=== PATIENT | male | born 1945 | race Caucasian/White ===

== ENCOUNTER 2018-08-25 06:23 | Inpatient (IN) | payer BC ==
[2018-08-24 13:13] VITALS: BMI 25.1
[2018-08-25] MEDS ORDERED: Bupivacaine HCl 0.5%/Epinephrine 1:200,000/PF 30 ml Vial ONE (06:31)
[2018-08-25] MEDS ORDERED: Heparin 5,000 UNITS/ML VIAL ONE (06:31)
[2018-08-25] MEDS ORDERED: Iothalamate Meglumine 60% 50 ML VIAL FS ONE (06:46)
[2018-08-25] MEDS ORDERED: Fentanyl 250 MCG/5 ML VIAL ONE (06:55)
[2018-08-25 07:09] LABS: #Basophils 0.1 thou/uL (0.0-0.2); #Eosinphils 0.3 thou/uL (0.0-0.7); #Lymphocytes 1.5 thou/uL (1.20-3.40); #Monocytes 0.6 thou/uL (0.11-0.59); #Neutrophils 3.3 thou/uL (1.40-6.50); %Basophils 0.9 % (0.0-1.0); %Eosinophils 5.7 % (0.0-10.0); %Lymphocytes 25.6 % (21.0-51.0); %Monocytes 10.3 % (0.0-10.0); %Neutrophils 57.6 % (42.0-75.0); Hemoglobin 14.5 g/dL (14.0-18.0); Mean Corpuscular Hemoglobin 31.9 pg (27.0-31.0); Mean Corpuscular Volume 93.8 fL (78.0-98.0); Mean Platelet Volume 7.2 fL (7.4-10.4); Platelet Count 240 thou/uL (130-400); RBC Distribution Width 12.2 % (11.5-14.5); Red Blood Cell (RBC) Count 4.55 mill/uL (4.70-6.10); White Blood Cell (WBC) Count 5.8 thou/uL (4.8-10.8)
[2018-08-25] MEDS ORDERED: CEFAZOLIN 2 GM/50 ML BAG ONE (07:18)
[2018-08-25] MEDS ORDERED: Midazolam HCl 2 mg/2 ml Vial ONE (07:25)
[2018-08-25 07:29] LABS: Anion Gap 14 mmol/L (10-20); BUN (Urea Nitrogen) 14 mg/dL (8.4-25.7); Calc. Creatinine Clearance 65 mL/min (70-130); Calcium 9.6 mg/dL (7.8-10.44); Carbon Dioxide 25 mmol/L (23-31); Chloride 104 mmol/L (98-107); Estimated GFR-MDRD 64; Glucose 98 mg/dL (83-110); Potassium 4.1 mmol/L (3.5-5.1); Sodium 139 mmol/L (136-145)
[2018-08-25] MEDS ORDERED: Heparin 10,000 UNITS/1 ML VIAL ONE (10:51)
[2018-08-25] MEDS ORDERED: Protamine Sulfate 50 MG/5 ML VIAL ONE (11:29)
[2018-08-25] MEDS ORDERED: Promethazine HCl 25 MG/ML VIAL IM PRN (14:14)
[2018-08-25] MEDS ORDERED: Promethazine HCl 25 MG/ML VIAL SLOW IVP PRN (14:14)
[2018-08-25] MEDS ORDERED: Ondansetron HCl/PF 4 MG/2 ML Vial IVP PRN (14:14)
[2018-08-25] MEDS ORDERED: Lidocaine 1% PF 5 ML VIAL ONE (14:58)
[2018-08-25] MEDS ORDERED: Vecuronium 10 MG VIAL ONE (14:58)
[2018-08-25] MEDS ORDERED: PROPOFOL 200 MG/20 ML VIAL ONE (14:58)
[2018-08-25] MEDS ORDERED: Ondansetron PF 4 MG/2 ML Vial ONE (14:58)
[2018-08-25] MEDS ORDERED: Glycopyrrolate 0.2 MG/ML 5 ML SYRINGE ONE (14:58)
[2018-08-25] MEDS ORDERED: ePHEDrine 50 MG/ML VIAL ONE (14:58)
[2018-08-25] MEDS ORDERED: Ketorolac Tromethamine 30 MG/ML VIAL ONE (14:58)
[2018-08-25] MEDS ORDERED: CEFAZOLIN 2 GM/50 ML BAG IVPB SCH (18:00)
[2018-08-25] MEDS ORDERED: Acetaminophen 325 MG TAB PO PRN (18:10)
[2018-08-25] MEDS ORDERED: Ondansetron PF 4 MG/2 ML Vial IVP PRN (18:10)
[2018-08-25] MEDS ORDERED: Sodium Chloride 0.9% 1,000 ML IV SCH (18:10)
[2018-08-25] MEDS ORDERED: traMADol HCl 50 MG TAB PO PRN (18:10)
[2018-08-25] MEDS ORDERED: Insulin Regular 300 UNITS/3 ML VIAL SC PRN (18:10)
[2018-08-25] MEDS ORDERED: Dextrose 50% Abboject 50 ML SYRINGE SLOW IVP PRN (18:10)
[2018-08-25] MEDS ORDERED: Dextrose 5% in Water 1,000 ML IV PRN (18:10)
[2018-08-25] MEDS ORDERED: Fentanyl 100 MCG/2 ML VIAL SLOW IVP PRN ×2 (18:10)
[2018-08-25] MEDS ORDERED: HYDROcodone/Acetaminophen 5/325 mg Tablet PO PRN ×2 (18:10)
[2018-08-25] MEDS: Gabapentin 300 MG CAP PO SCH (21:05)
[2018-08-25] MEDS: Atorvastatin Calcium 10 MG TAB PO SCH (21:05)
[2018-08-25] MEDS: Metoprolol Tartrate 50 MG TAB PO SCH (21:05)
[2018-08-26] MEDS: CEFAZOLIN 2 GM/50 ML BAG IVPB SCH ×2 (04:52→12:23)
[2018-08-26 05:47] LABS: #Eosinphils 0.2 thou/uL (0.0-0.7); #Lymphocytes 1.2 thou/uL (1.20-3.40); #Monocytes 0.7 thou/uL (0.11-0.59); #Neutrophils 5.5 thou/uL (1.40-6.50); %Basophils 0.5 % (0.0-1.0); %Eosinophils 3.2 % (0.0-10.0); %Monocytes 9.1 % (0.0-10.0); %Neutrophils 72.2 % (42.0-75.0); Hemoglobin 11.7 g/dL (14.0-18.0); Mean Corpuscular HGB CONC 33.9 g/dL (32.0-36.0); Mean Corpuscular Hemoglobin 32.5 pg (27.0-31.0); Mean Corpuscular Volume 95.9 fL (78.0-98.0); Mean Platelet Volume 7.5 fL (7.4-10.4); Platelet Count 187 thou/uL (130-400); RBC Distribution Width 12.3 % (11.5-14.5); White Blood Cell (WBC) Count 7.7 thou/uL (4.8-10.8)
[2018-08-26 06:06] LABS: Anion Gap 10 mmol/L (10-20); BUN (Urea Nitrogen) 12 mg/dL (8.4-25.7); Calc. Creatinine Clearance 66 mL/min (70-130); Calcium 8.4 mg/dL (7.8-10.44); Carbon Dioxide 29 mmol/L (23-31); Chloride 101 mmol/L (98-107); Estimated GFR-MDRD 61; Glucose 110 mg/dL (83-110); Potassium 4.1 mmol/L (3.5-5.1); Sodium 136 mmol/L (136-145)
[2018-08-26] MEDS: Dronedarone HCl 400 MG TAB PO SCH ×2 (08:01→16:51)
[2018-08-26] MEDS: metFORMIN XR 500 MG TAB PO SCH (08:01)
[2018-08-26] MEDS: Clopidogrel Bisulfate 75 MG TAB PO SCH (08:02)
[2018-08-26] MEDS: Aspirin Chewable 81 MG TAB PO SCH (08:02)
[2018-08-26] MEDS: Metoprolol Tartrate 50 MG TAB PO SCH ×2 (08:04→20:22)
[2018-08-26] MEDS ORDERED: Zolpidem Tartrate 5 MG TAB PO PRN (10:50)
[2018-08-26] MEDS ORDERED: Clopidogrel Bisulfate 75 MG TAB ONE ×2 (11:30→12:16)
[2018-08-26] MEDS: Atorvastatin Calcium 10 MG TAB PO SCH (20:24)
[2018-08-26] MEDS: Gabapentin 300 MG CAP PO SCH (20:24)
[2018-08-27 05:50] LABS: #Eosinphils 0.4 thou/uL (0.0-0.7); #Lymphocytes 1.2 thou/uL (1.20-3.40); #Monocytes 0.8 thou/uL (0.11-0.59); #Neutrophils 4.7 thou/uL (1.40-6.50); %Basophils 0.3 % (0.0-1.0); %Eosinophils 6.2 % (0.0-10.0); %Neutrophils 65.5 % (42.0-75.0); Hemoglobin 11.3 g/dL (14.0-18.0); Mean Corpuscular Hemoglobin 32.6 pg (27.0-31.0); Mean Corpuscular Volume 95.9 fL (78.0-98.0); Mean Platelet Volume 7.3 fL (7.4-10.4); Platelet Count 177 thou/uL (130-400); RBC Distribution Width 12.2 % (11.5-14.5); Red Blood Cell (RBC) Count 3.48 mill/uL (4.70-6.10); White Blood Cell (WBC) Count 7.2 thou/uL (4.8-10.8)
[2018-08-27 06:04] LABS: Anion Gap 13 mmol/L (10-20); BUN (Urea Nitrogen) 12 mg/dL (8.4-25.7); Calc. Creatinine Clearance 86 mL/min (70-130); Calcium 8.6 mg/dL (7.8-10.44); Carbon Dioxide 24 mmol/L (23-31); Chloride 106 mmol/L (98-107); Estimated GFR-MDRD 85; Glucose 113 mg/dL (83-110); Sodium 139 mmol/L (136-145)
[2018-08-27] MEDS: Aspirin Chewable 81 MG TAB PO SCH (08:20)
[2018-08-27] MEDS: Metoprolol Tartrate 50 MG TAB PO SCH (08:20)
[2018-08-27] MEDS: metFORMIN XR 500 MG TAB PO SCH (08:21)
[2018-08-27] MEDS: Clopidogrel Bisulfate 75 MG TAB PO SCH (08:21)
[2018-08-27] MEDS: Dronedarone HCl 400 MG TAB PO SCH (08:21)
[2018-08-27 12:30] VITALS: BP 130/68; TEMP 97.9
--- NOTE | 2018-08-28 11:18 | OP ---
DATE OF PROCEDURE: 08/25/2018 PREOPERATIVE DIAGNOSIS: Severe peripheral vascular disease. PROCEDURE PERFORMED: Common iliac artery stents x2, 9 x 37 and 9 x 27; external iliac artery stent 8 x 40 self-expanding was posted with a 7 mm balloon, extended right common and profunda femoral endarterectomy with bovine patch angioplasty and right femoral to posterior tibial bypass with in situ saphenous vein. ANESTHESIA: General. ESTIMATED BLOOD LOSS: 350. CONTRAST: 35 mL. FLUOROSCOPY: 7 minutes 29 seconds. DESCRIPTION OF PROCEDURE: After adequate anesthesia had been obtained, the patient was prepped and draped after ultrasound examination of his vein. Incision was made just above the knee; following which, the vein was mobilized. The incision was then carried out below the knee and the vein was then carried out into a previously placed fasciotomy scar. Following this, the posterior tibial artery was isolated below the knee and there was a high posterior tibial takeoff extending to behind the knee. Following this, incision was made in the right groin, exposing a heavily calcified common femoral artery and about 3 cm of profunda femoral artery to its first large bifurcation. Following heparinization, a needle was used to puncture the right common femoral artery. Wire was advanced. Seven-Slovak sheath placed and angiography obtained demonstrating about an 80% right common iliac artery stenosis distal to the origin and then about an 80% stenosis of the right external iliac artery. Following this, a 9 x 37 stent was then deployed at the proximal common iliac artery below the bifurcation. An 8 x 40 was then deployed in the external iliac artery crossing the internal iliac artery origin. Completion angiography showed about 1.5 cm of nonstented distal common iliac artery with significant disease, and this was stented with a 9 x 27. The 8 x 40 self-expanding stent was posted with a 7 mm balloon with nice result. Following this, wires and sheaths were removed. Clamps were applied to the common femoral artery clips on his branches and takes on the profunda vessels. Blunt arteriotomy was then carried down onto the distal profunda femoral artery and endarterectomy was performed of the entire vessels here. The origin of the superficial femoral artery was also endarterectomized in anticipation this area would be utilized for the takeoff of the femoral-popliteal graft as the vein was not as long as anticipated due to re- injury during the previous fasciotomy. After endarterectomy had been performed, bovine patch was sewn in place with a running 5-0 Prolene suture, leaving the origin area of the superficial femoral artery on the suture. The saphenous vein was then anastomosed to this occluded area including the edge of the patch. The vein was then brought through its tunnel with the endovascular harvesting equipment that could have been used to harvest the vein. It was passed posterior to the knee and anastomosed the proximal posterior tibial artery just behind the knee. Following completion of this, there was a good pulse in the graft and Doppler signal distally. Protamine was given to reverse heparin after the ACT had been monitored throughout the course of the procedure. After obtaining good hemostasis, the wounds were irrigated and closed in layers and 0.5% Marcaine with epinephrine was used to infiltrate the incisions. Job ID: [id number] [facility]ENTERHenrry
== END 2018-08-27 15:17 | disposition home or self-care (01) | DRG 254 ==
LOC: SURG A 06:23 → 2NO 17:08
PROVIDERS: ADMIT Thoracic Surgery (Cardiothoracic Vascular Surgery); ATTEND Thoracic Surgery (Cardiothoracic Vascular Surgery)
PROC: 04CK0Z6 (ICD-10-PCS; principal; 2018-08-25)
PROC: 04UK0KZ Supplement Right Femoral Artery with Nonautologous Tissue Substitute, Open Approach (ICD-10-PCS; 2018-08-25)
PROC: 047C0DZ Dilation of Right Common Iliac Artery with Intraluminal Device, Open Approach (ICD-10-PCS; 2018-08-25)
PROC: 047H0DZ Dilation of Right External Iliac Artery with Intraluminal Device, Open Approach (ICD-10-PCS; 2018-08-25)
PROC: 041K09N Bypass Right Femoral Artery to Posterior Tibial Artery with Autologous Venous Tissue, Open Approach (ICD-10-PCS; 2018-08-25)
PROC: 06BP0ZZ Excision of Right Saphenous Vein, Open Approach (ICD-10-PCS; 2018-08-25)
DX: I73.9 Peripheral vascular disease, unspecified (principal)
CPT/HCPCS: 36415; 36416; 76000; 80048; 85025; 86850; 86900; 86901; 90471; 90662; 93005; 93010; C1725; C1769; C1876; G0008; J0670; J1642; J1644; J2250; J2720; J3010; Q9961

== ENCOUNTER 2020-12-10 19:00 | Outpatient (CLI) | payer BC | END 2020-12-10 19:01 | disposition home or self-care (01) | LOC: SLEEPLAB 19:00 | PROVIDERS: ATTEND Internal Medicine Cardiovascular Disease | DX: G47.33 Obstructive sleep apnea (adult) (pediatric) (principal); I11.9 Hypertensive heart disease without heart failure; I25.10 Atherosclerotic heart disease of native coronary artery without angina pectoris; I21.9 Acute myocardial infarction, unspecified; R06.83 Snoring; G47.10 Hypersomnia, unspecified; G47.00 Insomnia, unspecified | CPT/HCPCS: 95810 ==

== ENCOUNTER 2020-12-16 19:30 | Outpatient (CLI) | payer BC | END 2020-12-16 19:31 | disposition home or self-care (01) | LOC: SLEEPLAB 19:30 | PROVIDERS: ATTEND Internal Medicine Cardiovascular Disease | DX: G47.33 Obstructive sleep apnea (adult) (pediatric) (principal); I11.9 Hypertensive heart disease without heart failure; I21.9 Acute myocardial infarction, unspecified | CPT/HCPCS: 95811 ==

== ENCOUNTER 2021-05-13 20:57 | Observation (INO) | payer BC ==
[2021-05-13] MEDS ORDERED: Nitroglycerin 2% Ointment 1 INCH/1 GM Packet ONE (22:05)
[2021-05-13] MEDS ORDERED: Aspirin 81 mg Enteric Coated Tablet ONE (22:05)
[2021-05-13 22:51] LABS: CKMB 2.3 ng/mL (0-6.6)
[2021-05-14 00:09] LABS: SARS-CoV-2 NAA Rapid Test Not Detected (NotDetected)
[2021-05-14] MEDS ORDERED: Acetaminophen 325 MG TAB PO PRN (00:33)
[2021-05-14] MEDS ORDERED: Ondansetron PF 4 MG/2 ML Vial IVP PRN (00:33)
[2021-05-14] MEDS ORDERED: FLU VACC QS2021-22(65YR UP)/PF 240 MCG/0.7 ML SYRINGE IM ONE (00:45)
[2021-05-14] MEDS ORDERED: Furosemide 20 MG/2 ML VIAL SLOW IVP SCH (00:45)
[2021-05-14 01:19] LABS: Troponin I 0.148 ng/mL (< 0.028)
[2021-05-14] MEDS ORDERED: Furosemide 20 MG/2 ML VIAL ONE ×2 (02:12→05:34)
[2021-05-14 04:02] LABS: Anion Gap 14 mmol/L (10-20); BUN (Urea Nitrogen) 11 mg/dL (8.4-25.7); Calc. Creatinine Clearance 58 mL/min (70-130); Calcium 9.1 mg/dL (7.8-10.44); Carbon Dioxide 28 mmol/L (23-31); Chloride 107 mmol/L (98-107); Glucose 96 mg/dL (83-110); Potassium 4.7 mmol/L (3.5-5.1); Sodium 144 mmol/L (136-145)
[2021-05-14 04:09] LABS: Troponin I 0.147 ng/mL (< 0.028)
[2021-05-14 04:13] LABS: #Eosinphils 0.3 thou/uL (0.0-0.7); #Lymphocytes 1.7 thou/uL (1.20-3.40); #Monocytes 0.8 thou/uL (0.11-0.59); #Neutrophils 4.7 thou/uL (1.40-6.50); %Basophils 0.1 % (0.0-1.0); %Eosinophils 4.1 % (0.0-10.0); %Lymphocytes 22.9 % (21.0-51.0); %Monocytes 10.2 % (0.0-10.0); %Neutrophils 62.6 % (42.0-75.0); Hemoglobin 11.3 g/dL (14.0-18.0); Mean Corpuscular HGB CONC 33.2 g/dL (32.0-36.0); Mean Corpuscular Hemoglobin 32.1 pg (27.0-31.0); Mean Corpuscular Volume 96.9 fL (78.0-98.0); Mean Platelet Volume 7.9 fL (7.4-10.4); Platelet Count 264 thou/uL (130-400); RBC Distribution Width 13.4 % (11.5-14.5); Red Blood Cell (RBC) Count 3.51 mill/uL (4.70-6.10); White Blood Cell (WBC) Count 7.6 thou/uL (4.8-10.8)
[2021-05-14] MEDS: Furosemide 20 MG/2 ML VIAL SLOW IVP SCH ×2 (05:35→14:40)
[2021-05-14] MEDS ORDERED: Enoxaparin Sodium 40 MG/0.4 ML SYRINGE ONE (08:54)
[2021-05-14] MEDS ORDERED: Enoxaparin Sodium 40 MG/0.4 ML SYRINGE SC SCH (09:00)
[2021-05-14] MEDS ORDERED: hydrALAZINE 20 MG/ML VIAL SLOW IVP PRN (10:01)
[2021-05-14] MEDS ORDERED: Apixaban 5 MG TAB PO SCH (10:15)
[2021-05-14] MEDS ORDERED: Dronedarone HCl 400 MG TAB PO SCH ×2 (10:15→21:00)
[2021-05-14] MEDS: Gabapentin 300 MG CAP PO SCH ×2 (14:40→20:29)
[2021-05-14] MEDS ORDERED: Non-Formulary Item 1 EACH (Gabapentin [Gabapentin] 600 MG Tablet) PO SCH (15:00)
[2021-05-14] MEDS: Dronedarone HCl 400 MG TAB PO SCH (20:31)
[2021-05-14] MEDS ORDERED: Atorvastatin Calcium 10 MG TAB PO SCH ×2 (21:00)
[2021-05-14] MEDS ORDERED: Clopidogrel Bisulfate 75 MG TAB PO SCH ×2 (21:00)
[2021-05-15 05:42] LABS: #Eosinphils 0.2 thou/uL (0.0-0.7); #Lymphocytes 1.4 thou/uL (1.20-3.40); #Monocytes 0.8 thou/uL (0.11-0.59); #Neutrophils 3.6 thou/uL (1.40-6.50); %Basophils 0.6 % (0.0-1.0); %Eosinophils 3.8 % (0.0-10.0); %Lymphocytes 22.3 % (21.0-51.0); %Monocytes 13.6 % (0.0-10.0); %Neutrophils 59.7 % (42.0-75.0); Hemoglobin 11.4 g/dL (14.0-18.0); Mean Corpuscular HGB CONC 33.5 g/dL (32.0-36.0); Mean Corpuscular Hemoglobin 32.5 pg (27.0-31.0); Mean Platelet Volume 7.4 fL (7.4-10.4); Platelet Count 248 thou/uL (130-400); RBC Distribution Width 13.5 % (11.5-14.5); Red Blood Cell (RBC) Count 3.51 mill/uL (4.70-6.10); White Blood Cell (WBC) Count 6.1 thou/uL (4.8-10.8)
[2021-05-15 06:00] LABS: Anion Gap 12 mmol/L (10-20); BUN (Urea Nitrogen) 11 mg/dL (8.4-25.7); Calc. Creatinine Clearance 58 mL/min (70-130); Calcium 8.8 mg/dL (7.8-10.44); Carbon Dioxide 29 mmol/L (23-31); Chloride 104 mmol/L (98-107); Glucose 96 mg/dL (83-110); Potassium 3.7 mmol/L (3.5-5.1); Sodium 141 mmol/L (136-145)
[2021-05-15] MEDS: Furosemide 20 MG/2 ML VIAL SLOW IVP SCH (06:17)
[2021-05-15] MEDS ORDERED: Loratadine 10 MG TAB PO PRN (07:09)
[2021-05-15] MEDS ORDERED: Artificial Tear Sol 15 ML BOT EA EYE PRN (07:09)
[2021-05-15] MEDS ORDERED: Nitroglycerin 0.4 MG TAB (25 Tab Bottle) SL PRN (07:09)
[2021-05-15] MEDS ORDERED: HYDROcodone/Acetaminophen 5/325 mg Tablet PO PRN (07:09)
[2021-05-15] MEDS ORDERED: Cepastat Lozenges 1 LOZ PO PRN (07:09)
[2021-05-15] MEDS ORDERED: Sodium Chloride 0.65% Nasal 44 ML BOT EA NARE PRN (07:09)
[2021-05-15] MEDS ORDERED: GUAIFENESIN SF SOLN 200 MG/10 ML UDCUP PO PRN (07:09)
[2021-05-15] MEDS ORDERED: Hydrocerin (Eucerin) Cream 120 gm Jar TOP PRN (07:09)
[2021-05-15] MEDS ORDERED: Loperamide HCl 2 MG CAP PO PRN (07:09)
[2021-05-15] MEDS ORDERED: Bisacodyl 5 MG TAB PO PRN (07:09)
[2021-05-15] MEDS ORDERED: Senokot S 8.6-50 MG TAB PO PRN (07:09)
[2021-05-15] MEDS ORDERED: Calcium Carbonate 500 MG ChewTAB PO PRN (07:09)
[2021-05-15] MEDS ORDERED: Melatonin 3 MG TAB PO PRN (07:10)
[2021-05-15 07:41] VITALS: BP 153/76; TEMP 98.1
[2021-05-15 08:06] LABS: ALT (SGPT) 17 U/L (8-55); AST (SGOT) 20 U/L (5-34); Albumin 3.2 g/dL (3.4-4.8); Alkaline Phosphatase 77 U/L (40-110); Bilirubin, Direct 0.3 mg/dL (0.1-0.3); Bilirubin, Total 0.4 mg/dL (0.2-1.2); Cardiac Risk 1.8 (Less than 4.5); Cholesterol 95 mg/dl (< 200 Desired); HDL Cholesterol 53 mg/dL (>60 Neg Risk); LDL Cholesterol, Calculated 24 mg/dL; Magnesium 1.8 mg/dL (1.6-2.6); Phosphorus 4.5 mg/dL (2.3-4.7); Protein, Total 5.6 g/dL (5.8-8.1); Triglycerides 88 mg/dL (Less than 150)
[2021-05-15] MEDS ORDERED: Apixaban 5 MG TAB PO SCH ×2 (09:00)
[2021-05-15] MEDS ORDERED: Non-Formulary Item 1 EACH (Omeprazole [Omeprazole] 40 MG Capsule.Dr) PO SCH (09:00)
[2021-05-15] MEDS: Gabapentin 300 MG CAP PO SCH (09:14)
[2021-05-15] MEDS: Dronedarone HCl 400 MG TAB PO SCH (09:14)
== END 2021-05-15 11:11 | disposition home or self-care (01) ==
LOC: ERS 20:57 → ERHOLD 22:39 → 2SE 22:58
PROVIDERS: ADMIT Internal Medicine; ATTEND Internal Medicine
DX: I11.0 Hypertensive heart disease with heart failure (principal); I50.33 Acute on chronic diastolic (congestive) heart failure; I21.A1 Myocardial infarction type 2; J96.01 Acute respiratory failure with hypoxia; I25.10 Atherosclerotic heart disease of native coronary artery without angina pectoris; I48.91 Unspecified atrial fibrillation; E78.5 Hyperlipidemia, unspecified; I73.9 Peripheral vascular disease, unspecified; G47.33 Obstructive sleep apnea (adult) (pediatric); I08.3 Combined rheumatic disorders of mitral, aortic and tricuspid valves; Z20.822 Contact with and (suspected) exposure to COVID-19; Z86.16 Personal history of COVID-19; Z86.73 Personal history of transient ischemic attack (TIA), and cerebral infarction without residual deficits; Z79.01 Long term (current) use of anticoagulants; Z79.02 Long term (current) use of antithrombotics/antiplatelets; Z79.899 Other long term (current) drug therapy; Z95.1 Presence of aortocoronary bypass graft; Z95.5 Presence of coronary angioplasty implant and graft; Z87.891 Personal history of nicotine dependence
CPT/HCPCS: 36415; 80048; 80061; 80076; 82553; 83735; 83880; 84100; 84443; 84484; 84550; 85025; 90471; 90662; 90732; 93005; 93306; 96372; 96374; 96375; 96376; G0008; G0009; G0378; J0360; J1650; J1940; U0002; U0003; U0005

== ENCOUNTER 2021-05-20 06:36 | Day surgery (SDC) | payer BC ==
[2021-05-19 15:11] VITALS: BMI 25.8
[~2021-05-20 06:36] MED LIST: Lidocaine 1% (PF) 30 ML VIAL ONE
[2021-05-20 08:07] LABS: Anion Gap 14 mmol/L (10-20); BUN (Urea Nitrogen) 12 mg/dL (8.4-25.7); Calc. Creatinine Clearance 53 mL/min (70-130); Carbon Dioxide 31 mmol/L (23-31); Chloride 99 mmol/L (98-107); Glucose 92 mg/dL (83-110); Sodium 140 mmol/L (136-145)
[2021-05-20] MEDS ORDERED: Verapamil 5 MG/2 ML VIAL ONE (08:22)
[2021-05-20] MEDS ORDERED: Nitroglycerin 100MG/250ML BOT 250 ML ONE (08:22)
[2021-05-20] MEDS ORDERED: Midazolam HCl 2 mg/2 ml Vial ONE (08:22)
[2021-05-20] MEDS ORDERED: Heparin 10,000 UNITS/ 10 ML VIAL ONE (08:22)
[2021-05-20] MEDS ORDERED: Fentanyl 100 MCG/2 ML VIAL ONE (08:23)
[2021-05-20] MEDS ORDERED: Atropine Sulfate 1 mg/10 ml Syringe ONE (09:17)
[2021-05-20] MEDS ORDERED: Iopamidol 370 76% 100 ML VIAL ONE (09:28)
== END 2021-05-20 16:45 | disposition home or self-care (01) ==
LOC: SDC 06:36
PROVIDERS: ATTEND Internal Medicine Cardiovascular Disease
PROC: B2181ZZ Fluoroscopy of Left Internal Mammary Bypass Graft using Low Osmolar Contrast (ICD-10-PCS; principal; 2021-05-20)
PROC: 4A023N7 Measurement of Cardiac Sampling and Pressure, Left Heart, Percutaneous Approach (ICD-10-PCS; principal; 2021-05-20)
PROC: B2121ZZ Fluoroscopy of Single Coronary Artery Bypass Graft using Low Osmolar Contrast (ICD-10-PCS; principal; 2021-05-20)
PROC: B2111ZZ Fluoroscopy of Multiple Coronary Arteries using Low Osmolar Contrast (ICD-10-PCS; principal; 2021-05-20)
DX: I35.0 Nonrheumatic aortic (valve) stenosis (principal); I25.10 Atherosclerotic heart disease of native coronary artery without angina pectoris; I25.82 Chronic total occlusion of coronary artery; I48.91 Unspecified atrial fibrillation; Z95.5 Presence of coronary angioplasty implant and graft; Z79.01 Long term (current) use of anticoagulants; Z79.02 Long term (current) use of antithrombotics/antiplatelets; Z79.899 Other long term (current) drug therapy
CPT/HCPCS: 36415; 75736; 76942; 80048; 93460; 93567; 99152; 99153; J0461; J1644; J2001; J2250; J3010; Q9967